=== PATIENT | female | born 1990 ===

== ENCOUNTER 2025-07-19 14:22 | Inpatient (IN) | payer OTHER ==
[~2025-07-19] VITALS: Ht 165.1 cm; Wt 62.2 kg
--- NOTE | 2025-07-19 15:15 | NUR ---
Received report from [facility]. Per report, pt is "alert and oriented x 4, needing constant redirection as she is forgetful and also having visual hallucinations. She is medically stable otherwise." Reason given for transfer to [facility] is that pt is in neutropenic precautions, and also having suicidal ideations. Dr. Tucker is accepting hospitalist. Unknown ETA.
--- NOTE | 2025-07-19 16:31 | NUR ---
Pt arrived to PCU 3. Shakir Fall and attending doctor Brannon are in the room with the patient.
[2025-07-19] MEDS ORDERED: Ondansetron HCl 2 MG / ML 2ML Vial IV PRN (17:00)
[2025-07-19] MEDS ORDERED: LORazepam 2 MG/ML 1ML Injection IV PRN ×2 (17:05)
[2025-07-19] MEDS ORDERED: FLU VACC TS2025-26(6MOS UP)/PF 45 MCG/0.5 ML SYRINGE IM SCH (17:05)
[2025-07-19 18:18] LABS: Thyroid Stimulating Hormone 2.960 uIU/mL (0.360-4.800)
--- NOTE | 2025-07-19 19:00 | NUR ---
ASSUMPTION OF CARE CARE OF PT ASSUMED FOLLOWING BEDSIDE SHIFT REPORT FROM DAY RN. PT LYING IN BED LOOKING ANXIOUS BUT VITAL SIGNS ARE STABLE. PT HAS CIWA SCORE OF 11 FOR NAUSEA, TREMOR AND ANXIETY, ALTHOUGH PT SAYS SHE HAS NOT HAD ALCOHOL FOR 1 YEAR. PT TREATED WITH LORAZEPAM. PT ALERT AND ORIENTED EXCEPT FOR EXACT DATE AND SHE IS UNABLE OR UNWILLING TO ANSWER SIMPLE HISTORY OR SMALL TALK QUESTIONS. NO LABS ORDERED, EXCEPT FOR TSH AND AMMONIA, UNTIL AM LABS, THOUGH H&P PROVIDER SAYS LABS FROM [facility] WERE GROSSLY WNL. PT 1:1 SITTER FOR MODERATE SUICIDAL IDEATION THOUGH PT SAYS SHE DOES NOT WANT TO HURT/KILL SELF RIGHT NOW AND ONLY IMPLIED OTHERWISE IN [place] BECAUSE THE WITHDRAWALS FROM NITROUS OXIDE MADE HER FEEL TERRIBLE. WILL REVIEW AND CONTINUE PLAN OF CARE.
--- NOTE | 2025-07-19 19:18 | NUR ---
SHIFT SUMMARY PATIENT IS ALERT AND ORIENTED, ABLE TO FOLLOW COMMANDS AND MAKE NEEDS KNOWN, PATIENT HAS EXHIBITS PARANOID DELUSIONS. PATIENT REPORTS ANXIETY AND DEPRESSION AT BASELINE. TELE IN PLACE, SR IN 90'S, SPO2 >90% ON RA. PATIENT DENIES PRESENCE OF CHEST PAIN OR PRESSURE. PATIENT TACHYPNEIC DURING EPISODES OF INCREASED ANXIETY. PATIENT DENIES ANY N/V/D, DENIES ABDOMINAL PAIN. PATIENT IS A SBA FOR CORD MANAGEMENT TO BATHROOM. 1:[address] DUE TO SI RISK, PATIENT IS IN BED, BED IN LOWEST POSITION.
[2025-07-19 20:00] VITALS: BP 157/106
--- NOTE | 2025-07-19 22:15 | NUR ---
UPDATE: FOLLOWING U/S, PT TAKEN TO BATHROOM BY TIN THE SITTER, AND FOLLOWING THIS THE PT BECAME MORE AGITATED AND BECAME FIXATED ON HER PERSONAL BELONGINGS AND PHONE, SAYING SHE NEEDS TO TALK TO HER DAUGHTER. CHARGE NURSE WAS CONSULTED AND HE IN TURN CONSULTED THE NURSING HUMANITIES INSTRUCTOR; THIS REQUEST FOR ACCESS TO PHONE, SPECIFICALLY, WAS DENIED. PT IS NOT ON A HOLD.
[2025-07-19 22:51] LABS: Source, Urine Clean Catch
[2025-07-19 23:04] LABS: U Amphetamine Screen Not Detected; U Barbiturate Screen Not Detected; U Benzodiazapine Screen DETECTED; U Cannabinoids Screen DETECTED; U Cocaine Screen Not Detected; U Methadone Screen Not Detected; U Methamphetamine Screen Not Detected; U Opiates Screen Not Detected; U Phencyclidine Screen Not Detected
[2025-07-19 23:05] LABS: U Buprenorphine Screen Not Detected; U Oxycodone Screen Not Detected
[2025-07-19 23:09] LABS: Bilirubin, Urine Neg (Neg); Color, Urine Pale Yellow (P-Yellow); Glucose Qualitative, Urine Neg (Neg); Ketones, Urine Neg (Neg); Leukocyte Esterase, Urine Neg (Neg); Protein, Urine Neg (Neg); Specific Gravity, Urine 1.005 (1.003-1.022); Urobilinogen, Urine NORM (Normal)
[2025-07-19 23:10] LABS: Red Blood Cells, Urine 0-2 /hpf (0-2); White Blood Cells, Urine Not Seen /hpf (0-5)
[2025-07-20 02:02] VITALS: BP 132/100
[2025-07-20 05:07] LABS: Hematocrit 33.3 % (33.0-51.0); Hemoglobin 11.5 g/dL (11.5-16.0); Mean Corpuscular HGB Conc 34.5 g/dL (31.5-36.5); Mean Corpuscular Volume 91 fL (80-100); NRBC ABSOLUTE 0.00 K/mm3 (0.00-0.02); NRBC Auto 0.0 /100 WBC (0.0-0.2); Platelet Count 81 K/mm3 (150-400); RDW Coefficient Variation 12.3 % (11.7-14.2); RDW Standard Deviation 41.1 fL (35.1-46.3)
[2025-07-20 05:37] LABS: BASOPHILS ABSOLUTE MAN 0.00 K/mm3 (0.00-0.23); BASOPHILS PERCENT MAN 0 % (0-2); EOSINOPHILS ABSOLUTE MAN 0.00 K/mm3 (0.00-0.68); EOSINOPHILS PERCENT MAN 0 % (0-6); LYMPHOCYTES % ATYPICAL MANUAL 2 % (0-0); LYMPHOCYTES ABSOLUTE MAN 1.86 K/mm3 (0.84-5.20); LYMPHOCYTES PERCENT MAN 73 % (21-46); MONOCYTES ABSOLUTE MAN 0.42 K/mm3 (0.16-1.47); MONOCYTES PERCENT MAN 17 % (4-13); MYELOCYTE ABSOLUTE MAN 0.02 K/mm3 (0.00-0.00); MYELOCYTE PERCENT MAN 1 % (0-0); NEUTROPHILS ABSOLUTE MAN 0.14 K/mm3 (1.96-9.15); PLASMA CELL ABSOLUTE MAN 0.02 K/mm3 (0.00-0.00); PLASMA CELLS PERCENT MAN 1 % (0-0); SEG NEUTROPHILS PERCENT MAN 6 % (41-73)
[2025-07-20 05:43] LABS: Alanine Aminotransfer (ALT/SGP 16.0 U/L (12-78); Albumin, Blood 3.4 g/dL (3.4-5.0); Albumin/Globulin Ratio 1.0 (0.8-1.8); Anion Gap 12.0 mmol/L (3-11); Aspartate Aminotrans (AST/SGOT 10.0 U/L (12-37); Bilirubin, Total 0.4 mg/dL (0.1-1.0); Blood Urea Nitrogen 11.0 mg/dL (8-24); CO2, Blood 24.0 mmol/L (21-32); Calcium, Blood 8.5 mg/dL (8.5-10.1); Chloride, Blood 106.0 mmol/L (98-108); Creatinine, Blood 0.7 mg/dL (0.40-1.00); Globulin, Blood 3.4 g/dL (2.2-4.0); Glucose, Blood 138.0 mg/dL (70-99); Potassium, Blood 3.9 mmol/L (3.5-5.5); Sodium, Blood 138.0 mmol/L (136-145); Total Protein, Blood 6.8 g/dL (6.4-8.2)
--- NOTE | 2025-07-20 05:56 | NUR ---
SHIFT SUMMARY PT LYING IN BED, DROWSY, ALERT AND ORIENTED TO PLACE, SITUATION BUT DOESNT KNOW EXACT DATE. PT ALSO CONFUSED AT TIMES ABOUT PERSONAL HISTORY. PT ON CIWA PROTOCOL DESPITE NEGATIVE ETOH TEST AT [facility] AND PT'S PROFESSION OF SOBRIETY FROM ETOH FOR ONE YEAR. PT SAYS SHE HAS ONLY ABUSED THC, ETOH AND NO2 IN THE PAST. CIWA SCORES HAVE BEEN FROM 11-16, FOR NAUSEA, TREMORS, ANXIETY, AGITATION, CLOUDING OF SENSORIUM, AND LATER, VISUAL HALLUCINATIONS. THESE SCORES HAVE BEEN TREATED WITH ATIVAN X 3, THOUGH THIS RN UNDERSTANDS THAT IT MAY NOT BE ETOH WITHDRAWAL CAUSING THE PRESENTING SYMPTOMS. PT GIVEN LIBRIUM ONCE BUT THE PT CHOKED ON PILLS AND VOMITED BACK UP. PT AFEBRILE AND NEUROMUSCULARLY INTACT, THOUGH COMPLAINS OF ODD SENSATIONS IN LEGS AND ARMS. LATER IN SHIFT COMPLAINED OF LOWER BACK PAIN. PT IN SINUS RHYTHM IN THE 90'S WITH STABLE BP. PT SATURATIONS WERE HIGH 90'S ON RA. PT DID NOT COMPLAIN OF CHEST PAIN OR SOB ALL SHIFT. PT DID NOT HAVE A BM ALL SHIFT. URINE OUTPUT OVER 1L ESTIMATED. 1:1 SITTER IN ROOM ALL SHIFT BUT PT DENIES SUICIDAL THOUGHTS AND SAYS SHE STATED SUCH THOUGHTS AT [facility] DUE TO FEELING TERRIBLE AND BEING FRUSTRATED. BEDSIDE SHIFT REPORT GIVEN TO DAY RN.
[2025-07-20 07:24] VITALS: BP 109/81
[2025-07-20] MEDS ORDERED: Cyanocobalamin 1000 MCG/ML 1ML Vial IM SCH (09:00)
[2025-07-20] MEDS ORDERED: Multivitamins 1 Tab PO SCH (09:00)
[2025-07-20] MEDS ORDERED: Enoxaparin 40 MG/0.4 ML SYR SC SCH (09:00)
--- NOTE | 2025-07-20 10:08 | NUR ---
AM NOTE: PATIENT ALERT TO SELF, PLACE, AND MOST DETAILS OF SITUATION. PERRLA, WEARING GLASSES. INTERMIT N/T. PATIENT STATES SHE FEELS LIKE HER RIGHT LEG AT TIMES "ISN'T WORKING". SBA FOR SAFETY. DENIES HEADACHE/BLURRY VISION. TREMORS NOTED IN UPPER EXTREMITIES. ABLE TO TURN SELF IN BED. 1:1 SITTER. PATIENT DENIES SI THIS MORNING. PSYCH CONSULT IN PLACE. PATIENT DENIES ALCOHOL USE. CIWA SCORING 6 THIS AM DUE TO TREMORS, ORIENTATION TO DATE, ANXIETY AND AGGITATION. PATIENT NOT HAPPY BEING AT HOSPITAL AND NOT HAVING PERSONAL BELONGINGS. TELE SHOWING SR WITH HR 70-80'S. DENIES CHEST PAIN/PRESSURE/PALPITATIONS. SCD'S. NO EDEMA NOTED. IV THIAMINE INFUSED THIS AM. ON ROOM AIR, LUNG SOUNDS CLEAR. DENIES SOB/COUGH. EVEN AND UNLABORED RESPIRTATIONS. BOWEL TONES PRESENT. DENIES NAUSEA/ABDOMINAL PAIN. UP TO BATHROOM TO VOID. PATIENT STATES SHE HAS A BURNING SENSATION WHEN VOIDING. UA SENT PREVIOUS SHIFT. RESIDENT TEAM UPDATED ON URINARY SYMPTOMS UPON BEDSIDE ROUNDING THIS AM. TOLERATING PO DIET. SKIN C/D/I. DR. CASTELAN, FERNANDO AND YENNI TO BEDSIDE THIS AM AND THIS RN PRESENT FOR MD ROUNDING. PLAN FOR HEAD XRAY TO R/O METAL PRIOR TO MRI. SITTER AT BEDSIDE. PATIENT RESTING IN BED AT THIS TIME AND DENIES NEEDS.
[2025-07-20 11:33] VITALS: BP 113/89
--- NOTE | 2025-07-20 15:04 | NUR ---
PATIENT REFUSING HEAD MRI. DR. CASTELAN CALLED TO UPDATE. NO NEW ORDERS FOR THIS RN TO PLACE.
--- NOTE | 2025-07-20 16:19 | NUR ---
PATIENT OUT THE BACK STAIRWAY AT 1600, SITTER FOLLOWED TO [facility] AND NOTIFIED RN. THIS RN NOTIFIED SECURITY, CARDROOM DRAWING RUNNER, NURSING DYE ROOM HELPER AND DR. CASTELAN/DR. HYMAN. STATES PATIENT DOES NOT NEED TO BE ON HOLD. AT 1619 PATIENT OUTSIDE EMERGENCY DEPARTMENT AND REFUSING TO COME BACK, BELONGINGS RETURNED. IV REMOVED. PATIENT LEFT AMA. NURSING DYE ROOM HELPER AND AWARE.
[2025-07-22 12:38] LABS: HOMOCYSTEINE,TOTAL 42 umol/L (0-15)
== END 2025-07-20 16:19 | disposition left against medical advice (07) | DRG 640 ==
LOC: PCU 14:22
PROVIDERS: Student in an Organized Health Care Education/Training Program; ADMIT Family Medicine
DX: E53.8 Deficiency of other specified B group vitamins (principal); G92.8 Other toxic encephalopathy; D61.818 Other pancytopenia; R45.851 Suicidal ideations; F10.20 Alcohol dependence, uncomplicated; D70.9 Neutropenia, unspecified; Z88.2 Allergy status to sulfonamides
CPT/HCPCS: 36415; 70030; 76705; 80053; 81001; 81025; 82140; 82607; 83090; 84443; 85025; A9270; J2060; J3411; J3420